=== PATIENT | male | born 1955 | race Two or more races ===

== ENCOUNTER 2022-12-04 23:47 | Inpatient (IN) | payer OTHER, MEDICAID ==
[~2022-12-04] VITALS: Ht 167.6 cm; Wt 69.0 kg
[2022-12-05 00:06] LABS: Basophils # (auto) 0 10 ^3/uL (0-0.2); Basophils % (auto) 0.8 % (0.0-2.0); Eosinophils # (auto) 0.1 10 ^3/uL (0-0.8); Eosinophils % (auto) 1.9 % (0.0-7.0); Hematocrit 42.5 % (41.0-53.0); Lymphocytes # (auto) 2.8 10 ^3/uL (0.4-5.4); Lymphocytes % (auto) 49.1 % (10.0-50.0); Mean Corpuscular Hemoglobin 27.3 pg (28.0-32.0); Mean Corpuscular Volume 82.7 fL (80.0-100.0); Monocytes # (auto) 0.4 10 ^3/uL (0-1.3); Monocytes % (auto) 6.6 % (0.0-12.0); Neutrophils # (auto) 2.4 10 ^3/uL (1.6-8.6); Neutrophils % (auto) 41.6 % (37.0-80.0); Nucleated Red Blood Cells % 0.1 %; Red Blood Cells 5.14 10^6/uL (4.5-5.90); Red Cell Distribution Width 14.2 % (11.8-14.3); White Blood Cell 5.7 10^3/uL (4.4-10.8)
[2022-12-05 00:19] LABS: INR 1.04 (0.9-1.15); Partial Thromboplastin Time 27.3 SEC (24.5-34.5)
[2022-12-05 00:23] LABS: Albumin 3.5 g/dL (3.4-5.0); Anion Gap 12 (5-15); BUN/Creatinine Ratio 14.4 (10.0-20.0); Blood Urea Nitrogen 16 mg/dL (7-18); Calcium 8.7 mg/dL (8.5-10.1); Carbon Dioxide 19 mmol/L (21-32); Chloride 108 mmol/L (98-107); GFR African American 85 mL/min; GFR Non-African American 70 mL/min; Glucose 352 mg/dL (74-106); Magnesium 1.9 mg/dL (1.6-2.6); Potassium 3.9 mmol/L (3.5-5.1); Sodium 139 mmol/L (136-145)
[2022-12-05 00:26] LABS: Alanine Aminotransferase 54 U/L (16-61); Alkaline Phosphatase 108 U/L (45-117); Aspartate Aminotransferase 19 U/L (15-37); Bilirubin, Total 0.4 mg/dL (0.2-1.0); Total Protein 6.4 g/dL (6.4-8.2)
[2022-12-05 00:31] VITALS: PULSE 70; RESP 16; O2SAT 97
[2022-12-05] MEDS ORDERED: ONDANSETRON HCL 4 MG/2 ML VIAL IV ONE (02:15)
[2022-12-05] MEDS ORDERED: MORPHINE SULFATE 4 MG/ML SYR/VIAL IV ONE (02:15)
[2022-12-05] MEDS ORDERED: MORPHINE SULFATE INJ 2 MG/ml SYRG IV PRN (05:45)
[2022-12-05] MEDS ORDERED: ONDANSETRON HCL 4 MG/2 ML VIAL IV PRN (05:45)
[2022-12-05] MEDS ORDERED: DEXTROSE (50%) 50ML SYRG IV PRN ×2 (05:45→12:00)
[2022-12-05] MEDS ORDERED: NITROGLYCERIN 0.4 MG SL TAB SL PRN (05:45)
[2022-12-05] MEDS ORDERED: InsuLIN REG 1unit/0.01ml Soln (100units/ml) SC SCH (06:00)
[2022-12-05] MEDS ORDERED: ACCU-CHEK COMFORT CURVE STRIP VI SCH (06:00)
[2022-12-05] MEDS: ISOSORBIDE MONONITRATE ER 60 MG TAB PO SCH (09:17)
[2022-12-05] MEDS: CLOPIDOGREL BISULFATE 75 MG TAB PO SCH (09:18)
[2022-12-05] MEDS: PANTOPRAZOLE 40 MG TAB PO SCH (09:19)
[2022-12-05] MEDS: ENOXAPARIN SOD 40 MG/0.4 ML SYRINGE SC SCH (09:20)
[2022-12-05] MEDS ORDERED: METOPROLOL TARTRATE 50 MG TAB PO SCH ×2 (10:00→22:00)
[2022-12-05] MEDS ORDERED: ADENOSINE 57 MG in GIVE UN-DILUTED 0 ML IV STA (10:21)
[2022-12-05 11:43] VITALS: BP 120/76; PULSE 65; RESP 16
[2022-12-05 13:23] LABS: Cholesterol 158 mg/dL (< 200)
[2022-12-05 13:25] LABS: HDL Cholesterol 51 mg/dL (40-59); LDL Cholesterol 84 mg/dL (< 100); Triglycerides 227 mg/dL (< 150)
[2022-12-05] MEDS ORDERED: ASPirin 81 mg TAB PO ONE (15:30)
[2022-12-05] MEDS: InsuLIN REG 1unit/0.01ml Soln (100units/ml) SC SCH ×2 (17:15→22:57)
[2022-12-05] MEDS: ACCU-CHEK COMFORT CURVE STRIP VI SCH ×2 (17:18→23:09)
[2022-12-05] MEDS: TAMSULOSIN HYDROCHLORIDE 0.4 MG CAP PO SCH (18:00)
[2022-12-05 20:08] VITALS: PULSE 55; RESP 14; O2SAT 95
[2022-12-05 22:00] VITALS: BP 108/69; PULSE 52; RESP 18; TEMP 97.8; O2SAT 96
[2022-12-05] MEDS: ATORVASTATIN 20 MG TAB PO SCH (22:57)
[2022-12-06] VITALS (8 sets, daily range): BP systolic 103–132; BP diastolic 65–76; PULSE 54–77; RESP 16–20; TEMP 97.5–98.2; O2SAT 94–97
[2022-12-06 06:23] LABS: Basophils # (auto) 0 10 ^3/uL (0-0.2); Basophils % (auto) 0.4 % (0.0-2.0); Eosinophils # (auto) 0.1 10 ^3/uL (0-0.8); Eosinophils % (auto) 1.3 % (0.0-7.0); Hematocrit 42.4 % (41.0-53.0); Hemoglobin 14.4 g/dL (13.5-17.5); Lymphocytes # (auto) 2.9 10 ^3/uL (0.4-5.4); Mean Corpuscular Hgb Conc. 34.1 g/dL (32.0-36.0); Mean Corpuscular Volume 82.2 fL (80.0-100.0); Monocytes # (auto) 0.5 10 ^3/uL (0-1.3); Neutrophils # (auto) 5.8 10 ^3/uL (1.6-8.6); Neutrophils % (auto) 62.3 % (37.0-80.0); Nucleated Red Blood Cells % 0.1 %; Red Blood Cells 5.16 10^6/uL (4.5-5.90); Red Cell Distribution Width 13.7 % (11.8-14.3); White Blood Cell 9.3 10^3/uL (4.4-10.8)
[2022-12-06 06:28] LABS: Potassium 3.7 mmol/L (3.5-5.1)
[2022-12-06] MEDS: ACCU-CHEK COMFORT CURVE STRIP VI SCH ×4 (06:36→22:59)
[2022-12-06 06:38] LABS: Albumin 3.2 g/dL (3.4-5.0); BUN/Creatinine Ratio 19.8 (10.0-20.0); Bilirubin, Total 0.8 mg/dL (0.2-1.0); Calcium 8.7 mg/dL (8.5-10.1); Total Protein 6.4 g/dL (6.4-8.2)
[2022-12-06] MEDS: InsuLIN REG 1unit/0.01ml Soln (100units/ml) SC SCH ×4 (06:51→23:01)
[2022-12-06] MEDS: CLOPIDOGREL BISULFATE 75 MG TAB PO SCH (09:29)
[2022-12-06] MEDS: NITROGLYCERIN 0.2MG/HR TOPICAL PATCH TD SCH (09:29)
[2022-12-06] MEDS: PANTOPRAZOLE 40 MG TAB PO SCH (09:30)
[2022-12-06] MEDS: ASPirin 81 mg TAB PO SCH (09:30)
[2022-12-06] MEDS: ISOSORBIDE MONONITRATE ER 60 MG TAB PO SCH (09:30)
[2022-12-06] MEDS: ENOXAPARIN SOD 40 MG/0.4 ML SYRINGE SC SCH (09:30)
[2022-12-06] MEDS ORDERED: METO-158 PO (15:05)
[2022-12-06] MEDS ORDERED: [UNRECOGNIZED DRUG - CODE] PO (15:05)
[2022-12-06] MEDS ORDERED: ATOR40TA52 PO (15:05)
[2022-12-06] MEDS ORDERED: METF-372 PO (15:05)
[2022-12-06] MEDS ORDERED: DOCU-111 PO (15:05)
[2022-12-06] MEDS ORDERED: SITA100T7 PO (15:05)
[2022-12-06] MEDS ORDERED: TELM80TA PO (15:05)
[2022-12-06] MEDS ORDERED: ASPI-543 PO (15:05)
[2022-12-06] MEDS ORDERED: CHOL20007 OR (15:05)
[2022-12-06] MEDS ORDERED: CLOP75TA70 PO (15:05)
[2022-12-06] MEDS ORDERED: CANA300T OR (15:05)
[2022-12-06] MEDS ORDERED: TAMS0.4C36 PO (15:05)
[2022-12-06] MEDS ORDERED: ISOS1TAB28 PO (15:05)
[2022-12-06] MEDS ORDERED: NITR1SPR TL (15:05)
[2022-12-06] MEDS: TAMSULOSIN HYDROCHLORIDE 0.4 MG CAP PO SCH (17:40)
[2022-12-06] MEDS: ATORVASTATIN 20 MG TAB PO SCH (23:02)
[2022-12-07] VITALS (7 sets, daily range): BP systolic 104–125; BP diastolic 67–81; PULSE 60–71; RESP 15–18; TEMP 97.4–97.9; O2SAT 94–100
[2022-12-07] MEDS: ACCU-CHEK COMFORT CURVE STRIP VI SCH ×4 (06:30→22:32)
[2022-12-07] MEDS: InsuLIN REG 1unit/0.01ml Soln (100units/ml) SC SCH ×4 (06:39→22:33)
[2022-12-07] MEDS: ASPirin 81 mg TAB PO SCH (09:38)
[2022-12-07] MEDS: PANTOPRAZOLE 40 MG TAB PO SCH (09:38)
[2022-12-07] MEDS: CLOPIDOGREL BISULFATE 75 MG TAB PO SCH (09:38)
[2022-12-07] MEDS: ENOXAPARIN SOD 40 MG/0.4 ML SYRINGE SC SCH (09:38)
[2022-12-07] MEDS: NITROGLYCERIN 0.2MG/HR TOPICAL PATCH TD SCH (09:38)
[2022-12-07] MEDS: ISOSORBIDE MONONITRATE ER 60 MG TAB PO SCH (09:40)
[2022-12-07] MEDS: TAMSULOSIN HYDROCHLORIDE 0.4 MG CAP PO SCH (17:10)
[2022-12-07] MEDS: ATORVASTATIN 20 MG TAB PO SCH (22:20)
[2022-12-08] VITALS (13 sets, daily range): BP systolic 87–132; BP diastolic 58–77; PULSE 58–72; RESP 8–18; TEMP 97.6–98.2; O2SAT 95–100
[2022-12-08] MEDS: ACCU-CHEK COMFORT CURVE STRIP VI SCH ×4 (06:17→21:36)
[2022-12-08] MEDS: InsuLIN REG 1unit/0.01ml Soln (100units/ml) SC SCH ×4 (06:17→21:42)
[2022-12-08] MEDS: PANTOPRAZOLE 40 MG TAB PO SCH (09:34)
[2022-12-08] MEDS: CLOPIDOGREL BISULFATE 75 MG TAB PO SCH (09:34)
[2022-12-08] MEDS: ASPirin 81 mg TAB PO SCH (09:34)
[2022-12-08] MEDS: ISOSORBIDE MONONITRATE ER 60 MG TAB PO SCH (09:34)
[2022-12-08] MEDS: ENOXAPARIN SOD 40 MG/0.4 ML SYRINGE SC SCH (10:00)
[2022-12-08] MEDS: NITROGLYCERIN 0.2MG/HR TOPICAL PATCH TD SCH (10:00)
[2022-12-08] MEDS ORDERED: LIDOCAINE 2%HCL (LOCAL ANESTH.) INJ 20ML MDV ONE (15:40)
[2022-12-08] MEDS ORDERED: SODIUM CHL 0.9% 50 ML ONE (15:40)
[2022-12-08] MEDS ORDERED: MIDAZOLAM HCL 2MG/2ML 2ml VIAL (1mg/ml) ONE (15:40)
[2022-12-08] MEDS ORDERED: fentaNYL CITRATE 100 MCG/2 ML VL ONE (15:40)
[2022-12-08] MEDS ORDERED: ANGIOMAX 250 MG VIAL IV ONE (15:40)
[2022-12-08] MEDS ORDERED: IOHEXOL 350 MG/ML 100ML IJ ONE (16:08)
[2022-12-08] MEDS: TAMSULOSIN HYDROCHLORIDE 0.4 MG CAP PO SCH (18:04)
[2022-12-08] MEDS: ATORVASTATIN 20 MG TAB PO SCH (21:26)
[2022-12-09 05:00] VITALS: BP 100/63; PULSE 64; RESP 18; TEMP 97.9; O2SAT 100
[2022-12-09 05:49] LABS: Basophils # (auto) 0 10 ^3/uL (0-0.2); Basophils % (auto) 0.3 % (0.0-2.0); Eosinophils # (auto) 0.1 10 ^3/uL (0-0.8); Eosinophils % (auto) 1.5 % (0.0-7.0); Hematocrit 41.1 % (41.0-53.0); Hemoglobin 14.1 g/dL (13.5-17.5); Lymphocytes # (auto) 2.2 10 ^3/uL (0.4-5.4); Lymphocytes % (auto) 27.4 % (10.0-50.0); Mean Corpuscular Hemoglobin 28.1 pg (28.0-32.0); Mean Corpuscular Hgb Conc. 34.3 g/dL (32.0-36.0); Mean Corpuscular Volume 81.7 fL (80.0-100.0); Monocytes # (auto) 0.6 10 ^3/uL (0-1.3); Monocytes % (auto) 7.3 % (0.0-12.0); Neutrophils # (auto) 5.2 10 ^3/uL (1.6-8.6); Neutrophils % (auto) 63.5 % (37.0-80.0); Red Blood Cells 5.03 10^6/uL (4.5-5.90); Red Cell Distribution Width 14.3 % (11.8-14.3); White Blood Cell 8.2 10^3/uL (4.4-10.8)
[2022-12-09 05:58] LABS: BUN/Creatinine Ratio 17.5 (10.0-20.0); Calcium 8.8 mg/dL (8.5-10.1); Potassium 4.5 mmol/L (3.5-5.1)
[2022-12-09] MEDS: ACCU-CHEK COMFORT CURVE STRIP VI SCH ×4 (06:31→22:08)
[2022-12-09] MEDS: InsuLIN REG 1unit/0.01ml Soln (100units/ml) SC SCH ×4 (06:32→22:08)
[2022-12-09 08:00] VITALS: PULSE 55; PULSE 58; RESP 18; O2SAT 97
[2022-12-09 08:58] VITALS: BP 123/73; PULSE 58; RESP 20; TEMP 98; O2SAT 97
[2022-12-09] MEDS: CLOPIDOGREL BISULFATE 75 MG TAB PO SCH (09:39)
[2022-12-09] MEDS: ISOSORBIDE MONONITRATE ER 60 MG TAB PO SCH (09:40)
[2022-12-09] MEDS: PANTOPRAZOLE 40 MG TAB PO SCH (09:40)
[2022-12-09] MEDS: ASPirin 81 mg TAB PO SCH (09:40)
[2022-12-09] MEDS: ENOXAPARIN SOD 40 MG/0.4 ML SYRINGE SC SCH (09:41)
[2022-12-09] MEDS: NITROGLYCERIN 0.2MG/HR TOPICAL PATCH TD SCH (09:46)
[2022-12-09 16:35] VITALS: BP 131/75; PULSE 51; RESP 20; TEMP 98.2; O2SAT 98
[2022-12-09] MEDS: TAMSULOSIN HYDROCHLORIDE 0.4 MG CAP PO SCH (18:17)
[2022-12-09 20:14] VITALS: PULSE 59
[2022-12-09 22:00] VITALS: BP 120/73; PULSE 57; RESP 17; TEMP 97.9; O2SAT 96
[2022-12-09] MEDS: ATORVASTATIN 20 MG TAB PO SCH (22:08)
[2022-12-10 05:00] VITALS: BP 135/76; PULSE 52; RESP 18; TEMP 97.4; O2SAT 100
[2022-12-10] MEDS: ACCU-CHEK COMFORT CURVE STRIP VI SCH ×2 (06:14→12:26)
[2022-12-10] MEDS: InsuLIN REG 1unit/0.01ml Soln (100units/ml) SC SCH ×2 (06:20→12:28)
[2022-12-10 07:11] LABS: Potassium 4.3 mmol/L (3.5-5.1)
[2022-12-10 07:29] LABS: BUN/Creatinine Ratio 17.2 (10.0-20.0); Calcium 9.1 mg/dL (8.5-10.1)
[2022-12-10 08:00] VITALS: PULSE 59; PULSE 65
[2022-12-10 09:00] VITALS: BP 129/78; PULSE 57; RESP 18; TEMP 97.8; O2SAT 98
[2022-12-10] MEDS: PANTOPRAZOLE 40 MG TAB PO SCH (09:55)
[2022-12-10] MEDS: CLOPIDOGREL BISULFATE 75 MG TAB PO SCH (09:55)
[2022-12-10] MEDS: ASPirin 81 mg TAB PO SCH (09:55)
[2022-12-10] MEDS: ENOXAPARIN SOD 40 MG/0.4 ML SYRINGE SC SCH (09:56)
[2022-12-10] MEDS: NITROGLYCERIN 0.2MG/HR TOPICAL PATCH TD SCH (09:56)
[2022-12-10] MEDS: ISOSORBIDE MONONITRATE ER 60 MG TAB PO SCH (10:00)
[2022-12-10 12:32] VITALS: BP 129/78; PULSE 52; TEMP 36.6
[2022-12-10 13:00] VITALS: BP 110/74; PULSE 72; RESP 18; TEMP 98; O2SAT 96
== END 2022-12-10 14:55 | disposition home or self-care (01) | DRG 246 ==
LOC: ER 23:47 → EDBD 23:47 → TELE 12-05 05:47 → TELE-WESTW 12-05 21:13
PROVIDERS: ADMIT Nurse Practitioner; ATTEND Internal Medicine
PROC: 027034Z Dilation of Coronary Artery, One Artery with Drug-eluting Intraluminal Device, Percutaneous Approach (ICD-10-PCS; principal; 2022-12-08)
PROC: B2131ZZ Fluoroscopy of Multiple Coronary Artery Bypass Grafts using Low Osmolar Contrast (ICD-10-PCS; 2022-12-08)
PROC: B2111ZZ Fluoroscopy of Multiple Coronary Arteries using Low Osmolar Contrast (ICD-10-PCS; 2022-12-08)
PROC: 4A033BC Measurement of Arterial Pressure, Coronary, Percutaneous Approach (ICD-10-PCS; 2022-12-08)
PROC: B2151ZZ Fluoroscopy of Left Heart using Low Osmolar Contrast (ICD-10-PCS; 2022-12-08)
PROC: B2181ZZ Fluoroscopy of Left Internal Mammary Bypass Graft using Low Osmolar Contrast (ICD-10-PCS; 2022-12-08)
DX: I24.9 Acute ischemic heart disease, unspecified (principal); N17.0 Acute kidney failure with tubular necrosis; E78.5 Hyperlipidemia, unspecified; E11.65 Type 2 diabetes mellitus with hyperglycemia; I10 Essential (primary) hypertension; N40.0 Benign prostatic hyperplasia without lower urinary tract symptoms; I25.110 Atherosclerotic heart disease of native coronary artery with unstable angina pectoris; Z95.1 Presence of aortocoronary bypass graft
CPT/HCPCS: 36415; 71045; 78452; 80048; 80053; 80061; 82962; 83036; 83735; 83880; 84443; 84484; 85025; 85610; 85730; 92928; 93005; 93017; 93455; 93571; 96365; 96372; 96375; 99152; 99153; C1874; G0378; J0153; J1815; J2250; J2405